=== PATIENT | female | born 1965 | race Caucasian/White ===

== ENCOUNTER → 2021-08-20 | Outpatient (CLI) | payer BC ==
--- NOTE | 2021-08-20 15:25 | RAD ---
Renal ultrasound 08/20/2021 INDICATION: Proteinuria COMPARISON STUDY: None Discussion: Ultrasound evaluation of the kidneys was performed. Static images are submitted to PACS. Visualized IVC and aorta are unremarkable. Right kidney measures 10.0 x 5.4 x 5.1 cm. There is a 1.6 cm cyst within the inferior pole the right kidney. No other focal renal lesions are seen on the right . Left kidney measures 10.7 x 4.9 x 5.4 cm. Is a 1.4 cm cyst seen in the mid left kidney. No hydronep hrosis, nephrolithiasis, or evidence of obstructive uropathy is seen involving either kidneys. The bl adder is nonvisualized. IMPRESSION: Simple bilateral renal cysts. Otherwise unremarkable sonographic appearance of the kidney s. Electronically signed by: Surya Rdz MD (08/20/2021 3:23 PM) [id number]
== END ==
LOC: US 10:48
PROVIDERS: ATTEND Family Medicine
DX: N28.1 Cyst of kidney, acquired (principal); R80.9 Proteinuria, unspecified
CPT/HCPCS: 76770

== ENCOUNTER → 2021-08-25 | Outpatient (CLI) | payer BC ==
[~2021-08-25] MED LIST: IOHEXOL 240 MG/ML 50ML VIAL. ONE; IOHEXOL 240 MG/ML 50ML VIAL. PO ONE; IOHEXOL 300 MG/ML 75 ML VIAL. IV ONE
--- NOTE | 2021-08-25 11:13 | RAD ---
CT ABDOMEN+PELVIS W History: Diarrhea, proteinuria, abdominal pain and swelling. Comparison: Renal ultrasound 08/20/2021 Technique: CT abdomen pelvis with intravenous and oral contrast. Findings: Partial atelectasis or consolidation in the right middle lobe. Lung bases are otherwise clear. Heart is unremarkable. Partially visualized breast implants. The liver is unremarkable. Status post cholecystectomy. Mild intrahepatic ductal dilatation and commo n bile duct measuring 8 mm diameter. The pancreas, spleen and adrenal glands are unremarkable. lobulation of the kidneys with bilateral renal cysts. No hydronephrosis or nephrolithiasis. 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 Normal appearance of the excluded stomach and pancreaticobi liary limb. Minimal contrast reflux into the distal pancreatic or biliary limb. Contrast opacifies th e [place] limb and proximal small bowel. [place] distal small bowel is incompletely opacified. There is m ild fecalization of the terminal ileum with partial contrast opacification. No wall thickening. [place] l appendix. Unremarkable colon. The bladder is normal. Status post hysterectomy. No abdominal pelvic adenopathy. No free air or free fluid. Mild aortoiliac calcification. Cystic space in the right psoas muscle measuring 2.4 cm diameter consistent with right psoas bursitis . Degenerative changes of the spine at L5-S1. Impression: 1. 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 Mild fecalization of th e terminal ileum may represent slow transit. No evidence of colonic obstruction. 2. lobulation of the kidneys with bilateral cysts. No hydronephrosis or nephrolithiasis. 3. Right psoas bursitis. 4. Right middle lobe atelectasis versus consolidation. 5. Cholecystectomy with mild intra and extrahepatic biliary ductal dilatation. ------ Exposure: One or more of the following individualized dose reduction techniques were utilized for thi s examination: 1. Automated exposure control 2. Adjustment of the mA and/or kV according to patient size 3. Use of iterative reconstruction technique. Electronically signed by: Tyrese Ramsay MD (08/25/2021 11:10 AM) [facility]
== END ==
LOC: CT 08:30
PROVIDERS: ATTEND Family Medicine
DX: N28.1 Cyst of kidney, acquired (principal); R19.7 Diarrhea, unspecified; R19.5 Other fecal abnormalities; I70.0 Atherosclerosis of aorta
CPT/HCPCS: 74177; Q9967